=== PATIENT | male | born 1965 | race Caucasian/White ===

== ENCOUNTER 2016-08-25 23:00 | Inpatient (IN) | payer BC ==
--- NOTE | ~2016-08-25 | PN ---
Unit #: [id number] #: [id number] Patient: JUAN FRANCISCO VERA [id number] [facility] [address] [place] [address] [id number] I MR#: [id number] NAME: JUAN FRANCISCO VERA. ROOM: P251 Age: 51 Sex: M Admission Date: 08/26/2016 : 1965 Attending Physician: Lucien Wilson M.D. Admitting Physician: Lucien Wilson M.D. Primary Care Physician: Omar Rod PROGRESS NOTES DATE 08/28/2016 DISCUSSION Mr. Vera is a 51-year-old, white male who was seen today and chart was reviewed and case was discussed with the staff. He has been anxious, withdrawn and rather seclusive to himself and he reports persistent depressive symptoms. Meanwhile, he has been taking medications and tolerating them fairly well with no reported side effects. MENTAL STATUS EXAM Middle-aged white male who was casually dressed with fair personal hygiene, appears to be in no acute distress or discomfort. He was awake and alert on interaction with intact orientation. His mood was anxious with congruent affect. He denies any suicidal or homicidal ideation. His insight and judgement remains slightly impaired. TREATMENT PLAN 1. We will continue him on his current medications and treatment protocol. We will monitor his response to the medication and make further adjustments as needed. 2. We will continue to follow up. Dictated by... Omar Pablo/sara TD: 08/29/2016 20:49 JOB #: [id number] Unit #: [id number] #: [id number] Patient: JUAN FRANCISCO VERA [facility] PROGRESS NOTES Page 1 of 1 X Lucien Wilson MD X PROGRESS NOTE
--- NOTE | ~2016-08-25 | HP ---
Unit #: [id number] #: [id number] Patient: JUAN FRANCISCO HOWE [id number] [place] [address] [id number] I MR#: [id number] NAME: JUAN FRANCISCO HOWE. ROOM: P211 Age: 51 Sex: M Admission Date: 08/26/2016 : 1965 Attending Physician: Lucien Wilson M.D. Admitting Physician: Lucien Wilson M.D. Primary Care Physician: Mary Grace Gao M.D. HISTORY AND PHYSICAL HISTORY OF PRESENT ILLNESS Juan Francisco is a 51 year old admitted to [address] [place] [address] with depression and increased anxiety. PAST MEDICAL HISTORY 1. Coronary artery disease. a. Angioplasty with stents. 2. High blood pressure. 3. Hyperlipidemia. 4. History of ulcerative colitis. PAST SURGICAL HISTORY Nothing reported. ALLERGIES No known drug allergies. SOCIAL HISTORY He does not smoke. Drinks alcohol socially. Denies illicit drug use. FAMILY HISTORY Medically noncontributory. REVIEW OF SYSTEMS CONSTITUTIONAL: No fever or chills. HEENT: Denies any sore throat, ear pain or runny nose. CARDIOVASCULAR: Denies chest pain, irregular heart rhythm or palpitations. CHEST: Denies shortness of breath or cough. No hemoptysis. GASTROINTESTINAL: Denies nausea, vomiting, diarrhea or chronic constipation. ENDOCRINE: Denies history of increased thirst or urination. No recent significant weight loss or gain. GENITOURINARY: Denies dysuria, frequency, or hematuria. SKIN: Denies any rashes. HEMATOLOGIC: Denies history of increased bleeding or bruising. MUSCULOSKELETAL: Denies any hot, swollen joints. No generalized muscle pain. NEUROLOGIC: Denies problems with vision or speech. No frequent, severe headaches. No numbness, tingling or weakness in any extremities. Denies loss of bladder or bowel control. CURRENT MEDICATIONS 1. Lipitor 10 mg daily. Unit #: [id number] #: [id number] Patient: JUAN FRANCISCO HOWE 2. Milk of Magnesia p.r.n. 3. Maalox p.r.n. 4. Tylenol p.r.n. 5. Fish oil 1000 mg daily. 6. Aspirin 81 mg daily. 7. HCTZ 25 mg daily. 8. Zestril 20 mg daily. 9. Plavix 75 mg daily. 10. Lexapro 20 mg daily. PHYSICAL EXAMINATION GENERAL: Alert, well-nourished, in no apparent distress. VITAL SIGNS: Blood pressure 140/88, heart rate 84, respirations 16, temperature 98.6. WEIGHT: 210. HEIGHT: 6 feet 2 inches. SKIN: Warm and dry without rash or lesion. HEENT: Normocephalic. TMs not viewed. Oral and nasal passages clear. Conjunctivae clear. PERRLA. EOMs intact. NECK: Supple without lymphadenopathy or thyromegaly. HEART: Regular rate and rhythm without murmur. LUNGS: Clear. ABDOMEN: Soft, nontender. : Not done. EXTREMITIES: No evidence of cyanosis, clubbing or edema. Moves all without focal deficit. NEUROLOGICAL: Grossly within normal limits. Cranial Nerves: II: Visual qureshi are intact. III, IV AND : Extraocular movements are intact. Pupils are equal, round and reactive to light. V: Facial sensation is grossly normal. VII: Facial movements and expression are normal. VIII: Auditory acuity grossly intact. IX, X: Uvula is midline. Phonation is normal. XI: Patient shrugs shoulders and turns head normally. XII: Tongue protrudes in the midline. Sensory and Motor Function: Sensory and motor sensation is grossly normal. Motor: moves all extremities well. Coordination: Gait is normal. Deep Tendon Reflexes: Intact. IMPRESSION Psychiatric admission. RECOMMENDATIONS PSYCHIATRIC: Per psychiatrist. MEDICAL: See no contraindication to participate in facility's activities. MEDICAL PROGNOSIS Good. MEDICAL CONDITION Stable. Dictated by... Lyndsey Chin P.A.-C. for Spencer Jefferson M.D. Unit #: [id number] #: [id number] Patient: JUAN FRANCISCO HOWE Jose Juan GARCIA/sebastian TD: 08/26/2016 21:29 JOB #: [id number] HISTORY AND PHYSICAL Page 1 of 1 X Lyndsey Chin HISTORY AND PHYSICAL
--- NOTE | ~2016-08-25 | PA ---
Unit #: [id number] #: [id number] Patient: JUAN FRANCISCO VERA [id number] [facility] [address] [place] [address] [id number] MR#: [id number] NAME: JUAN FRANCISCO VERA. ROOM: P211 Age: 51 Sex: M Admission Date: 08/26/2016 : 1965 Date of Assessment: Attending Physician: Lucien Wilson M.D. Admitting Physician: Lucien Wilson M.D. Primary Care Physician: Mary Grace Gao M.D. PSYCHIATRIC ASSESSMENT DATE OF SERVICE 08/26/2016. IDENTIFYING DATA Mr. Vera is a 51-year-old single white male who is a resident of [place], [place] and was self-referred to the hospital on a voluntary basis. CHIEF COMPLAINT "Suicidal thoughts and extreme anxiety." HISTORY OF PRESENT ILLNESS Mr. Vera is a 51-year-old white male who was brought to the hospital reporting that he has been having suicidal thoughts and extreme anxiety and that he has been having constant thoughts of suicide with no plan and believed that it would be better and easier if he would not be on earth and that he has been having these thoughts for the past 4 days. He reports that he was diagnosed 2 years ago with PTSD and feels like it is coming back and that stresses to blink. He reports over the weekend he posted a tweet from the news station reporting "Robin, you are an idiot." When he realized that he sent out the message, he tried to delete it, but someone in [place] sought and reported to the news station. 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 He reports driving on [address] and had a panic attack and almost lost consciousness while driving to work, and reports that the tweet will reach [employer] Kelly and [employer] Pedro and they will find him and target him and cost him his job and livelihood. He does report increasing depression, anxiety, agitation, irritability, feelings of hopelessness and helplessness, and suicidal ideations and as such, recommendation for inpatient level of care for safety and stabilization was made and the patient was transferred to us. SUBSTANCE ABUSE HISTORY The patient reports occasional experimentation with alcohol, but denies any regular drug abuse. PAST PSYCHIATRIC HISTORY The patient has had a history of inpatient and outpatient psychiatric treatment, and review of the medical records indicated that currently he is on Lexapro, but does not appear to be showing therapeutic response to the medications. PAST MEDICAL HISTORY Unit #: [id number] #: [id number] Patient: JUAN FRANCISCO VERA Coronary artery disease and ulcerative colitis. ALLERGIES No known medication allergies. PERSONAL AND SOCIAL HISTORY A 51-year-old white male who reports that he is single, unemployed, and lives at home with his parents. MENTAL STATUS EXAMINATION Middle-aged white male who was casually dressed with fair personal hygiene, appears to be in no acute distress or discomfort. He was awake and alert on interaction with intact orientation to time, place, and person. His mood was anxious and depressed with a congruent affect. His speech was slow and restricted in content. His thought processes were disorganized with some looseness of associations and suicidal ideations. His insight and judgment remain significantly impaired. DIAGNOSTIC IMPRESSION Psychiatric: Major depressive disorder, recurrent, moderate, without psychotic features; generalized anxiety disorder; posttraumatic stress disorder by history. Medical: Ulcerative colitis, coronary artery disease. Stressors: Moderate psychosocial stressors. TREATMENT PLAN 1. The patient has presented with a history of mood disorder and has been decompensating and will need inpatient hospitalization for safety and stabilization. We will start him back on his home medications. We will adjust the medications and monitor response. 2. Supportive therapy was provided to the patient. 3. Safe, structured, and nourishing environment will be provided. ESTIMATED LENGTH OF STAY 5 to 7 days. ABILITY TO HELP SELF Limited. WILLINGNESS TO HELP SELF The patient appears to be willing to help self. STRENGTHS 1. Communicative. 2. Cooperative. PROBLEMS 1. Chronic dysphoric symptoms. 2. Poor social support system. DISCHARGE CRITERIA This will be contingent upon the patient's ability to show resolution of his depression and anxiety and his ability to stay safe to himself, particularly after discharge from the hospital. Dictated by... Lucien Wilson M.D. Unit #: [id number] #: [id number] Patient: JUAN FRANCISCO VERA IAA/modl TD: 08/27/2016 07:35 JOB #: [id number] PSYCHIATRIC ASSESSMENT Page 1 of 1 X Lucien Wilson MD PSYCHIATRIC ASSESSMENT
--- NOTE | ~2016-08-25 | DS ---
Unit #: [id number] #: [id number] [facility] [id number] [facility] [address] [place] [address] [id number] I MR#: [id number] NAME: JUAN FRANCISCO VERA. ROOM: [facility] Age: 51 Sex: M Admission Date: 08/26/2016 : 1965 Discharge Date: 09/03/2016 Attending Physician: Lucien Wilson M.D. Primary Care Physician: Mary Grace Gao M.D. DISCHARGE SUMMARY IDENTIFYING DATA Mr. Vera is a 51-year-old single white male, who is a resident of [place], [place], and was self-referred to the hospital on a voluntary basis. DISCHARGE DIAGNOSES Psychiatric: Major depressive disorder, recurrent, moderate, without psychotic features; generalized anxiety disorder; posttraumatic stress disorder. Medical: Ulcerative colitis and coronary artery disease. Stressors: Moderate psychosocial stressors. HISTORY OF PRESENT ILLNESS Please see initial psychiatric evaluation for details. PAST PSYCHIATRIC HISTORY Please see initial psychiatric evaluation for details. PAST MEDICAL HISTORY Please see initial psychiatric evaluation for details. HOSPITAL COURSE The patient was admitted to the adult psychiatric unit at [facility] and was oriented to the hospital environment. Routine p.r.n. medications were initiated, and he was started back on his home medications and medications were adjusted and he was started on a combination of Effexor and BuSpar for depression and anxiety. He was taking the medications regularly and was tolerating them fairly well and was able to show a decent and therapeutic response with improvement in depression and anxiety and was denying any suicidal ideations, intent, or plan and as such, it was decided that he will be discharged home and will continue treatment on an outpatient basis. DISCHARGE MEDICATIONS Effexor XR 75 mg a day for depression and BuSpar 10 mg b.i.d. for anxiety. DISCHARGE CONDITION Stable. PROGNOSIS Fair. Dictated by... Unit #: [id number] #: [id number] Patient: JUAN FRANCISCO VERA Lucien Wilson M.D. IAA/modl TD: 09/03/2016 07:03 JOB #: [id number] DISCHARGE SUMMARY Page 1 of 1 X Lucien Wilson MD DISCHARGE SUMMARY
--- NOTE | ~2016-08-25 | PN ---
Unit #: [id number] #: [id number] Patient: JUAN FRANCISCO HOWE [id number] [facility] [address] [place] [address] [id number] I MR#: [id number] NAME: JUAN FRANCISCO HOWE. ROOM: P251 Age: 51 Sex: M Admission Date: 08/26/2016 : 1965 Attending Physician: Lucien Wilson M.D. Admitting Physician: Lucien Wilson M.D. Primary Care Physician: Omar Rod PROGRESS NOTES DATE 09/02/2016 DISCUSSION Mr. Howe is a 51-year-old white male who was seen today and chart was reviewed and case was discussed with the staff. He has been doing fairly well with no agitation, irritability and has been cooperative with treatment recommendations as he has been taking medications and tolerating them fairly well with no reported side effects. MENTAL STATUS EXAMINATION Middle-aged white male who was casually dressed with fair personal hygiene and appears to be in no acute distress or discomfort. He was awake and alert on interaction with intact orientation. His mood was anxious with congruent affect. He denies any suicidal or homicidal ideation. His insight and judgement remains slightly impaired. TREATMENT PLAN 1. Will continue him on his current treatment protocol. Will monitor his response to the medications and make further adjustments as needed. 2. Will continue to follow up. Dictated by... Lucien Wilson M.D. IAA/dzh TD: 09/02/2016 22:13 JOB #: [id number] Unit #: [id number] #: [id number] Patient: JUAN FRANCISCO HOWE PROGRESS NOTES Page 1 of 1 X Lucien Wilson MD X PROGRESS NOTE
--- NOTE | ~2016-08-25 | PN ---
Unit #: [id number] #: [id number] Patient: JUAN FRANCISCO VERA [id number] [facility] [address] [place] [address] [id number] I MR#: [id number] NAME: JUAN FRANCISCO VERA. ROOM: P251 Age: 51 Sex: M Admission Date: 08/26/2016 : 1965 Attending Physician: Lucien Wilson M.D. Admitting Physician: Lucien Wilson M.D. Primary Care Physician: Omar Rod PROGRESS NOTES DATE 09/01/2016 DISCUSSION Mr. Vera is a 51-year-old male who was seen today and chart was reviewed and case was discussed with the staff. He has been anxious, withdrawn, rather seclusive to himself. Meanwhile, he has been cooperative with treatment recommendations and has been taking the medications and tolerating them fairly well with no reported side effects. MENTAL STATUS EXAMINATION Middle-aged white male who was casually dressed with fair personal hygiene and appears to be in no acute distress or discomfort. He was awake and alert on interaction with intact orientation. His mood was anxious with congruent affect. He denies any suicidal or homicidal ideation and also denies any auditory or visual hallucinations. His insight and judgement remains slightly impaired. TREATMENT PLAN 1. Will continue on his current medications and treatment protocol. Will monitor his response to the medications and make further adjustments as needed. 2. Will continue to follow up. Dictated by... Omar Pablo/sebastian TD: 09/01/2016 17:38 JOB #: [id number] Unit #: [id number] #: [id number] Patient: JUAN FRANCISCO VERA PROGRESS NOTES Page 1 of 1 X Lucien Wilson MD X PROGRESS NOTE
--- NOTE | ~2016-08-25 | PN ---
Unit #: [id number] #: [id number] Patient: JUAN FRANCISCO HOWE [id number] [facility] [address] [place] [address] [id number] I MR#: [id number] NAME: JUAN FRANCISCO HOWE. ROOM: P211 Age: 51 Sex: M Admission Date: 08/26/2016 : 1965 Attending Physician: Lucien Wilson M.D. Admitting Physician: Lucien Wilson M.D. Primary Care Physician: Omar Rod PROGRESS NOTES DATE 08/27/2016 DISCUSSION Mr. Howe is a 51-year-old white male who was seen today and chart was reviewed and case was discussed with the staff. He has been anxious, withdrawn and rather seclusive to himself and reports persistent depressive symptoms with feelings of hopelessness and suicidal thoughts. He has not shown any agitation or aggression. MENTAL STATUS EXAMINATION Middle-aged white male who was casually dressed with fair personal hygiene and appears to be in no acute distress or discomfort. He was awake and alert on interaction. Depressed with a congruent affect. His speech is slow and restricted in content. He reports having suicidal ideation but denies any homicidal ideations. His insight and judgement remains slightly impaired. TREATMENT PLAN 1. Will continue on his current medications and treatment protocol. Will monitor his response to the medications and make further adjustments as needed. 2. Will continue to follow up. Dictated by... Lucien Wilson M.D. IAA/wiltonh TD: 08/27/2016 17:45 JOB #: [id number] Unit #: [id number] #: [id number] Patient: JUAN FRANCISCO HOWE [facility] PROGRESS NOTES Page 1 of 1 X Lucien Wilson MD X PROGRESS NOTE
--- NOTE | ~2016-08-25 | PN ---
Unit #: [id number] #: [id number] Patient: JUAN FRANCISCO HOWE [id number] [facility] [address] [place] [address] [id number] I MR#: [id number] NAME: JUAN FRANCISCO HOWE. ROOM: P251 Age: 51 Sex: M Admission Date: 08/26/2016 : 1965 Attending Physician: Lucien Wilson M.D. Admitting Physician: Lucien Wilson M.D. Primary Care Physician: Omar Rod PROGRESS NOTES DATE OF SERVICE 08/29/2016 DISCUSSION Mr. Howe is a 51-year-old white male who was seen today. Chart was reviewed and case was discussed with the staff. He has been anxious, withdrawn, and rather seclusive to himself. Meanwhile, he has been cooperative with the treatment recommendations and has been taking the medications and tolerating them fairly well with no reported side effects. MENTAL STATUS EXAMINATION Middle-aged white male who is casually dressed with fair personal hygiene, appears to be in no acute distress or discomfort. He was awake and alert on interaction with intact orientation. His mood is anxious with congruent affect. He denies any suicidal or homicidal ideations. His insight and judgment remain slightly impaired. TREATMENT PLAN 1. We will continue him on his current treatment protocol. We will monitor his response to the medications and make further adjustments as needed. 2. We will continue to follow up. Dictated by... Lucien Wilson M.D. IAA/bzg TD: 08/30/2016 11:16 JOB #: [id number] [facility] PROGRESS NOTES Page 1 of 1 X Lucien Wilson MD X PROGRESS NOTE
--- NOTE | ~2016-08-25 | PN ---
Unit #: [id number] #: [id number] Patient: JUAN FRANCISCO VERA [id number] [facility] [address] [place] [address] [id number] I MR#: [id number] NAME: JUAN FRANCISCO VERA. ROOM: P251 Age: 51 Sex: M Admission Date: 08/26/2016 : 1965 Attending Physician: Lucien Wilson M.D. Admitting Physician: Lucien Wilson M.D. Primary Care Physician: Omar Rod PROGRESS NOTES DATE 08/30/2016 DISCUSSION Mr. Vera is a 51-year-old, white male who was seen today and chart was reviewed and case was discussed with the staff. He has been anxious, withdrawn and rather seclusive to himself. Meanwhile, he has been cooperative with treatment recommendations. He has been taking medications and tolerating them fairly well with no reported side effects. MENTAL STATUS EXAM Middle-aged white male who was casually dressed with fair personal hygiene, appears to be in no acute distress or discomfort. He was awake and alert with intact orientation. His mood was anxious with congruent affect. He denies any suicidal or homicidal ideation. His insight and judgement remains slightly impaired. TREATMENT PLAN 1. We will continue him on his current medications and treatment protocol. We will monitor his response to the medication and make further adjustments as needed. 2. We will continue to follow up. Dictated by... Omar Pablo/sara TD: 08/31/2016 04:39 JOB #: [id number] Unit #: [id number] #: [id number] Patient: JUAN FRANCISCO VERA [facility] PROGRESS NOTES Page 1 of 1 X Lucien Wilson MD X PROGRESS NOTE
--- NOTE | ~2016-08-25 | PN ---
Unit #: [id number] #: [id number] Patient: JUAN FRANCISCO VERA [id number] [facility] [address] [place] [address] [id number] I MR#: [id number] NAME: JUAN FRANCISCO VERA. ROOM: P251 Age: 51 Sex: M Admission Date: 08/26/2016 : 1965 Attending Physician: Lucien Wilson M.D. Admitting Physician: Lucien Wilson M.D. Primary Care Physician: Omar Rod PROGRESS NOTES DATE August 31, 2016 DISCUSSION Mr. Vera is a 51-year-old white male, who was seen today and chart was reviewed and the case was discussed with the staff. He has been complaining of being depressed and having significant anxiety when he found out that he lost his job and reported feelings of hopelessness and helplessness, and has not been sleeping. Meanwhile, he has been taking the medications and tolerating them fairly well. MENTAL STATUS EXAMINATION Middle-aged white male, who was casually dressed with fair personal hygiene and appears to be in no acute distress or discomfort. He was awake and alert on interaction with intact orientation. His mood is anxious and depressed with a congruent affect. He reports having suicidal ideations but denies any homicidal ideations. His insight and judgment remain slightly impaired. TREATMENT PLAN 1. We will continue him on his current medications and treatment protocol, and will monitor his response to the medications, and make further adjustments as needed. 2. We will continue to followup. Dictated by... Omar Pablo/alissa TD: 09/01/2016 08:50 JOB #: [id number] Unit #: [id number] #: [id number] Patient: JUAN FRANCISCO VERA [facility] PROGRESS NOTES Page 1 of 1 X Lucien Wilson MD PROGRESS NOTE
[2016-08-27 09:28] LABS: BASOPHIL% 0.8 % (0-2.5); EOSINOPHIL% 0.7 % (0.0-7.0); HEMATOCRIT 46.8 % (38.0-50.0); HEMOGLOBIN 16.2 gm/dL (13.0-16.0); LYMPHOCYTE# 1.6 X10e3 (1.0-3.5); LYMPHOCYTE% 29.3 % (17.0-45.0); MEAN CELL VOLUME 84.8 FL (83-96); MEAN CORPUSCULAR HEMOGLOBIN 29.4 PG (28-34); MEAN CORPUSCULAR HGB CONC 34.6 g/dL (30-36); MEAN PLATELET VOLUME 7.2 FL (6.5-11.5); MONOCYTE# 0.5 X10e3 (0-1.0); MONOCYTE% 9.2 % (3.0-12.0); NEUTROPHIL# 3.3 X10e3 (1.5-7.1); PLATELET COUNT 194 X10e3 (140-420); RED BLOOD COUNT 5.52 X10e (3.90-5.60); RED CELL DISTRIBUTION WIDTH 13.1 % (11.0-15.5); WHITE BLOOD COUNT 5.4 X10e3 (4.0-10.5)
[2016-08-27 09:50] LABS: ALBUMIN SERUM 4.2 g/dL (3.5-5.0); BILIRUBIN,TOTAL 1.5 mg/dL (0.2-2.0); BUN/CREATININE RATIO 26.66; CALCIUM SERUM 9.2 mg/dL (8.4-10.2); CREATININE SERUM 0.6 mg/dL (0.6-1.4); GLOM FILT RATE Estimated 118.1 mL/min (>60); POTASSIUM 3.9 mmol/L (3.5-5.1); PROTEIN TOTAL SERUM 6.9 g/dL (6.0-8.3)
[2016-08-27 09:52] LABS: DIFF IND NO
[2016-08-31 09:52] LABS: URINE APPEARANCE CLEAR; URINE BILIRUBIN NEG (NEG); URINE BLOOD NEG (NEG); URINE COLOR DK YELLOW; URINE GLUCOSE NEG (NEG); URINE KETONE NEG (NEG); URINE LEUKOCYTE ESTERASE NEG (NEG); URINE NITRATE NEG (NEG); URINE PROTEIN NEG (NEG); URINE SPECIFIC GRAVITY 1.026 (1.003-1.035)
[2016-08-31 10:10] LABS: AMPHETAMINE NEG (NEG); BARBITURATES NEG (NEG); BENZODIAZEPINES NEG (NEG); COCAINE NEG (NEG); MARIJUANA NEG (NEG); OPIATES NEG (NEG); TRICYCLIC ANTIDEPRESSANTS NEG (NEG); U METHADONE NEG (NEG)
== END 2016-09-03 14:45 | disposition home or self-care (01) | DRG 885 ==
LOC: P2L 08-26 06:47 → P2S 08-26 06:47 → POF 08-26 06:47 → P2S 08-26 12:27 → P2L 08-28 18:31
PROVIDERS: Psychiatry & Neurology Psychiatry
DX: F33.1 Major depressive disorder, recurrent, moderate (principal); K51.90 Ulcerative colitis, unspecified, without complications; F41.1 Generalized anxiety disorder; F43.10 Post-traumatic stress disorder, unspecified; I25.119 Atherosclerotic heart disease of native coronary artery with unspecified angina pectoris; I25.10 Atherosclerotic heart disease of native coronary artery without angina pectoris; Z95.5 Presence of coronary angioplasty implant and graft; Z79.01 Long term (current) use of anticoagulants
CPT/HCPCS: 80053; 80307; 81003; 85025